=== PATIENT | male | born 1985 | race Caucasian/White ===

== ENCOUNTER 2016-07-10 17:20 | Emergency (ER) | payer BC ==
[~2016-07-10] VITALS: Ht 170.2 cm; Wt 99.6 kg
[2016-07-10 17:23] VITALS: BP 152/98
[2016-07-10] MEDS ORDERED: BACITRACIN ZINC OINT 500U/GM, 0.9 GM ONE (17:46)
== END 2016-07-10 18:26 | disposition home or self-care (01) ==
LOC: ED 18:15
DX: S51.851A Open bite of right forearm, initial encounter (principal); W54.0XXA Bitten by dog, initial encounter; Y93.89 Activity, other specified; Y99.8 Other external cause status; Y92.89 Other specified places as the place of occurrence of the external cause
CPT/HCPCS: 99283

== ENCOUNTER → 2016-12-29 | Outpatient (CLI) | payer BC | END | disposition home or self-care (01) | LOC: CFH 09:12 | PROVIDERS: ATTEND Nurse Practitioner Family | DX: M25.775 Osteophyte, left foot (principal) ==